=== PATIENT | female | born 1995 | race African-American/Black ===

== ENCOUNTER 2017-03-17 12:25 | Emergency (ER) | payer OTHER ==
[~2017-03-17] VITALS: Ht 160 cm; Wt 56.3 kg
[~2017-03-17 12:25] MED LIST: BACTRIM,SEPT1 TABLET PO; FIORICET 50-301 EACH PO; PYRIDIUM100 MG PO; REGLAN10 MG PO
[2017-03-17 13:47] LABS: ADD MIUA? YES; BILIRUBIN NEGATIVE; BLOOD SMALL; COLOR YELLOW ((YELLOW)); GLUCOSE (STRIP) NEGATIVE; KETONES NEGATIVE; LEUKOCYTES TRACE; NITRITE NEGATIVE; PROTEIN (STRIP) 30; SPECIFIC GRAVITY 1.014 (1.000-1.030); UROBILINOGEN 0.2 MG/DL (0.2-1.0)
[2017-03-17 13:53] LABS: BACTERIA RARE /HPF; EPITHELIAL CELLS 1+ /HPF; MUCUS TRACE /LPF; WHITE BLOOD CELLS 30-40 /HPF (0-5)
[2017-03-17 14:11] LABS: EOSINOPHIL (%) 1.7 % (0-5); EOSINOPHIL COUNT 0.1 K/uL (0-0.3); HEMATOCRIT 39.5 % (36.0-46.0); IMMATURE GRANULOCYTE (%) 0.3 % (0.0-0.7); INSTRUMENT ABS NEUTROPHIL CT 4.4 K/uL; LYMPHOCYTE COUNT 2.3 K/uL (1.0-2.8); MCH 30.1 PG (29.0-34.0); MCHC 34.2 G/DL (30.0-36.0); MCV 88.2 FL (83-99); MEAN PLAT.VOLUME 9.9 uM^3 (9.5-12.4); MONOCYTE (%) 9.2 % (3-12); MONOCYTE COUNT 0.7 K/uL (0-0.8); NEUTROPHIL (%) 58.5 % (45-76); NEUTROPHIL COUNT 4.4 K/uL (1.8-6.4); PLATELET COUNT 300 K/uL (156-360); RBC DIS.WIDTH-CV 11.4 % (11.8-14.6); RBC DIS.WIDTH-SD 36.5 % (39-53); RED BLOOD COUNT 4.48 M/uL (3.80-5.20); WHITE BLOOD COUNT 7.6 K/uL (4.1-10.2)
[2017-03-17 14:22] LABS: CHLORIDE 101 mEq/L (99-109); POTASSIUM 4.2 mEq/L (3.7-5.4); SODIUM 135 mEq/L (136-147)
[2017-03-17 14:23] LABS: GLUCOSE 92 mg/dL (70-99)
[2017-03-17 14:25] LABS: ANION GAP 7 MEQ/L (2-14)
[2017-03-17 14:27] LABS: GFR ESTIMATE (CALCULATED) > 59 mL/min/
[2017-03-17 14:28] LABS: UREA NITROGEN (BUN) 11 mg/dL (9-23)
[2017-03-17 14:35] LABS: QUANTITATIVE HCG < 4.0 MIU/ML
[2017-03-17] MEDS ORDERED: PYRIDIUM100 MG PO (15:02)
[2017-03-17] MEDS ORDERED: MACROBID100 MG PO (15:02)
[2017-03-17 15:10] VITALS: BP 127/82
== END 2017-03-17 15:10 | disposition home or self-care (01) ==
LOC: RME 12:25 → EME 12:25 → RME 15:10
PROVIDERS: Physician Assistant
DX: N39.0 Urinary tract infection, site not specified (principal); F17.200 Nicotine dependence, unspecified, uncomplicated
CPT/HCPCS: 80048; 81003; 84702; 85025; 87077; 87086; 99281; 99284

== ENCOUNTER 2017-03-19 12:17 | Emergency (ER) | payer OTHER ==
[~2017-03-19] VITALS: Ht 152.4 cm; Wt 53.5 kg
[~2017-03-19 12:17] MED LIST changes: +MACROBID100 MG PO
[2017-03-19 13:36] LABS: HEMATOCRIT 40.1 % (36.0-46.0); MCH 30.7 PG (29.0-34.0); MCHC 35.2 G/DL (30.0-36.0); MCV 87.2 FL (83-99); MEAN PLAT.VOLUME 9.7 uM^3 (9.5-12.4); PLATELET COUNT 315 K/uL (156-360); RBC DIS.WIDTH-CV 11.3 % (11.8-14.6); RBC DIS.WIDTH-SD 35.9 % (39-53); WHITE BLOOD COUNT 6.8 K/uL (4.1-10.2)
[2017-03-19 13:47] LABS: CHLORIDE 99 mEq/L (99-109); POTASSIUM 3.5 mEq/L (3.7-5.4); SODIUM 133 mEq/L (136-147)
[2017-03-19 13:49] LABS: GLUCOSE 85 mg/dL (70-99)
[2017-03-19 13:50] LABS: ANION GAP 11 MEQ/L (2-14)
[2017-03-19 13:51] LABS: TOTAL BILIRUBIN 0.9 mg/dL (0.0-1.0)
[2017-03-19 13:52] LABS: ALKALINE PHOSPHATASE 80 IU/L (3-129)
[2017-03-19 13:53] LABS: GFR ESTIMATE (CALCULATED) > 59 mL/min/
[2017-03-19 13:54] LABS: UREA NITROGEN (BUN) 12 mg/dL (9-23)
[2017-03-19 13:56] LABS: ADD MIUA? YES; BILIRUBIN NEGATIVE; BLOOD NEGATIVE; COLOR AMBER ((YELLOW)); GLUCOSE (STRIP) NEGATIVE; KETONES 80; LEUKOCYTES NEGATIVE; NITRITE POSITIVE; PROTEIN (STRIP) 100; SPECIFIC GRAVITY 1.023 (1.000-1.030)
[2017-03-19 14:01] LABS: QUANTITATIVE HCG < 4.0 MIU/ML
[2017-03-19 14:26] LABS: RED BLOOD CELLS 0-5 /HPF (0-5)
[2017-03-19 14:27] LABS: BACTERIA 2+ /HPF; EPITHELIAL CELLS 2+ /HPF; MUCUS 2+ /LPF; UCUL ADDED? YES
[2017-03-19] MEDS ORDERED: NAPROSYN500 MG PO (16:15)
[2017-03-19 16:27] VITALS: BP 115/84
[2017-03-22 13:46] LABS: CHLAMYDIA TRACHOMATIS NEGATIVE; NEISSERIA GONORRHOEAE NEGATIVE
== END 2017-03-19 16:29 | disposition home or self-care (01) ==
LOC: EME 12:17
PROVIDERS: Physician Assistant
DX: N39.0 Urinary tract infection, site not specified (principal); F17.200 Nicotine dependence, unspecified, uncomplicated
CPT/HCPCS: 74020; 74177; 80053; 81003; 84702; 85027; 87086; 87210; 87491; 87591; 99281; 99285; J2405; J3010; J7030

== ENCOUNTER 2017-08-29 15:49 | Emergency (ER) | payer OTHER ==
[~2017-08-29] VITALS: Ht 157.5 cm; Wt 53.4 kg
[~2017-08-29 15:49] MED LIST changes: +NAPROSYN500 MG PO
[2017-08-29 16:49] LABS: HEMATOCRIT 36.5 % (36.0-46.0); HEMOGLOBIN 13.1 G/DL (11.9-15.5); MCH 31.2 PG (29.0-34.0); MCHC 35.9 G/DL (30.0-36.0); MCV 86.9 FL (83-99); PLATELET COUNT 292 K/uL (156-360); RBC DIS.WIDTH-CV 11.9 % (11.8-14.6); RBC DIS.WIDTH-SD 37.7 % (39-53); WHITE BLOOD COUNT 6.8 K/uL (4.1-10.2)
[2017-08-29 16:59] LABS: CHLORIDE 105 mEq/L (99-109); POTASSIUM 3.7 mEq/L (3.7-5.4); SODIUM 138 mEq/L (136-147)
[2017-08-29 17:00] LABS: GLUCOSE 53 mg/dL (70-99)
[2017-08-29 17:01] LABS: D-DIMER ELISA < 150.00 ng/mLDDU (<230)
[2017-08-29 17:04] LABS: CREATININE 0.7 mg/dL (0.6-1.3); GFR ESTIMATE (CALCULATED) > 59 mL/min/
[2017-08-29 17:05] LABS: UREA NITROGEN (BUN) 13 mg/dL (9-23)
[2017-08-29 17:12] LABS: TROP-I INTERPRETATION NEGATIVE; TROPONIN-I < 0.01 ng/mL (0.0-0.30)
[2017-08-29 19:46] VITALS: BP 124/80
== END 2017-08-29 19:40 | disposition home or self-care (01) ==
LOC: EME 15:49
PROVIDERS: Physician Assistant Medical
DX: R07.9 Chest pain, unspecified (principal); I10 Essential (primary) hypertension; F17.210 Nicotine dependence, cigarettes, uncomplicated; Z82.49 Family history of ischemic heart disease and other diseases of the circulatory system; Z91.19 Patient's noncompliance with other medical treatment and regimen
CPT/HCPCS: 71045; 80048; 81003; 84484; 84703; 85027; 85379; 93005; 99281; 99285; J1885; J2405; J3010

== ENCOUNTER 2018-02-06 09:20 | Emergency (ER) | payer OTHER ==
[~2018-02-06] VITALS: Ht 160 cm; Wt 50.9 kg
[2018-02-06 09:41] LABS: HEMATOCRIT 35.1 % (36.0-46.0); HEMOGLOBIN 12.5 G/DL (11.9-15.5); MCH 30.6 PG (29.0-34.0); MCHC 35.6 G/DL (30.0-36.0); PLATELET COUNT 297 K/uL (156-360); RBC DIS.WIDTH-CV 11.6 % (11.8-14.6); RBC DIS.WIDTH-SD 36.4 % (39-53); RED BLOOD COUNT 4.08 M/uL (3.80-5.20)
[2018-02-06 09:51] LABS: ALBUMIN 4.3 g/dL (3.2-4.8); CHLORIDE 103 mEq/L (99-109); POTASSIUM 3.6 mEq/L (3.7-5.4); SODIUM 135 mEq/L (136-147)
[2018-02-06 09:53] LABS: GLUCOSE 91 mg/dL (70-99); TOTAL PROTEIN 7.9 g/dL (6.4-8.3)
[2018-02-06 09:55] LABS: TOTAL BILIRUBIN 0.6 mg/dL (0.0-1.0)
[2018-02-06 09:57] LABS: ALKALINE PHOSPHATASE 68 IU/L (3-129); CREATININE 0.8 mg/dL (0.6-1.3); GFR ESTIMATE (CALCULATED) > 59 mL/min/
[2018-02-06 09:58] LABS: UREA NITROGEN (BUN) 16 mg/dL (9-23)
[2018-02-06 09:59] LABS: AST (GOT) 15 IU/L (2-34)
[2018-02-06 10:00] LABS: ALT (GPT) 7 IU/L (3-49)
[2018-02-06 10:05] LABS: QUANTITATIVE HCG < 4.0 MIU/ML
[2018-02-06 10:46] LABS: APPEARANCE CLEAR ((CLEAR)); BILIRUBIN NEGATIVE; BLOOD SMALL; COLOR YELLOW ((YELLOW)); GLUCOSE (STRIP) NEGATIVE; KETONES 5; LEUKOCYTES NEGATIVE; NITRITE NEGATIVE; PROTEIN (STRIP) 30; SPECIFIC GRAVITY 1.028 (1.000-1.030)
[2018-02-06 10:48] LABS: BACTERIA RARE /HPF; EPITHELIAL CELLS RARE /HPF; MUCUS 1+ /LPF; RED BLOOD CELLS 0-5 /HPF (0-5); UCUL ADDED? NO; WHITE BLOOD CELLS 0-5 /HPF (0-5)
[2018-02-06 10:58] LABS: LIPASE 18 U/L (1.0-51.0)
[2018-02-06] MEDS ORDERED: CITRATE OF MAG296 ML PO (11:20)
[2018-02-06] MEDS ORDERED: BENTYL20 MG PO (11:20)
[2018-02-06 11:40] VITALS: BP 121/75
== END 2018-02-06 11:40 | disposition home or self-care (01) ==
LOC: EME 09:20
DX: R10.13 Epigastric pain (principal); K59.00 Constipation, unspecified; I10 Essential (primary) hypertension; Z87.891 Personal history of nicotine dependence
CPT/HCPCS: 74022; 80053; 81003; 83690; 84702; 85027; 99281; 99284

== ENCOUNTER 2018-03-19 10:33 | Emergency (ER) | payer OTHER ==
[~2018-03-19] VITALS: Ht 157.5 cm; Wt 51.6 kg
[~2018-03-19 10:33] MED LIST changes: +BENTYL20 MG PO; +CITRATE OF MAG296 ML PO
[2018-03-19 11:34] LABS: HEMATOCRIT 32.1 % (36.0-46.0); HEMOGLOBIN 11.4 G/DL (11.9-15.5); MCHC 35.5 G/DL (30.0-36.0); MCV 87.2 FL (83-99); PLATELET COUNT 264 K/uL (156-360); RBC DIS.WIDTH-CV 11.7 % (11.8-14.6); RBC DIS.WIDTH-SD 37.4 % (39-53); RED BLOOD COUNT 3.68 M/uL (3.80-5.20); WHITE BLOOD COUNT 5.8 K/uL (4.1-10.2)
[2018-03-19 11:53] LABS: TROP-I INTERPRETATION NEGATIVE; TROPONIN-I < 0.01 ng/mL (0.0-0.30)
[2018-03-19 12:03] LABS: CHLORIDE 103 MEQ/L (99-109); POTASSIUM 3.8 MEQ/L (3.7-5.4); SODIUM 136 MEQ/L (136-147)
[2018-03-19 12:08] LABS: CREATININE 0.6 MG/DL (0.6-1.3); GFR ESTIMATE (CALCULATED) > 59 mL/min/; GLUCOSE 79 mg/dL (70-99); UREA NITROGEN (BUN) 13 mg/dL (9-23)
[2018-03-19 12:22] LABS: THYROTROPIN (TSH) 0.63 MIU/L (0.4-5.5)
[2018-03-19 12:43] VITALS: BP 120/78
== END 2018-03-19 12:44 | disposition home or self-care (01) ==
LOC: EME 10:33
PROVIDERS: Family Medicine
DX: R07.89 Other chest pain (principal); I12.0 Hypertensive chronic kidney disease with stage 5 chronic kidney disease or end stage renal disease; N18.6 End stage renal disease; F17.210 Nicotine dependence, cigarettes, uncomplicated
CPT/HCPCS: 71046; 80048; 84443; 84484; 85027; 93005; 99281; 99284